=== PATIENT | female | born 1985 ===

== ENCOUNTER 2024-07-17 00:41 | Emergency (ER) | payer OTHER, SELFPAY ==
--- NOTE | ~2024-07-17 | CT_ITS ---
CLINICAL HISTORY: L flank pain hx stones CT abdomen and pelvis without contrast Comparison: None Findings: Lung bases clear. Heart size normal. Small hiatal hernia. 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 Otherwise normal noncontrast attenuation. No focal abnormality. Normal contour. Gallbladder, biliary tree, pancreas and spleen are unremarkable. Mild physiologic fullness left adrenal gland. Unremarkable right adrenal gland. Bilateral nephrolithiasis. 4 mm upper pole stone left kidney, 2 and 3 mm midpole and 2 mm lower pole stones right kidney. No obstructing stones on either side. No hydronephrosis. Incompletely rotated left kidney. Otherwise normal noncontrast appearance of the kidneys. No bowel obstruction. Moderate stool burden in the distal colon. Questionable wall thickening of bowel loops in the left lower quadrant. And infiltration of the mesentery within the low pelvis. Etiology uncertain. Further assessment limited. No diverticulitis. No abnormal appendix. Urinary bladder decompressed. Retroverted uterus. IUD projecting good position. Ovaries not well delineated. Bones intact. Soft tissues unremarkable. Impression: Bilateral nonobstructing nephrolithiasis. No obstructing stones or hydronephrosis. Nonspecific infiltration suggested in the low pelvic mesentery with questionable wall thickening of distal small bowel loops. No additional features for obstruction or enteritis. Further assessment limited and if indicated, follow-up CT with oral and IV contrast suggested. This document has been electronically signed by: Narciso Yang MD on 07/17/2024 05:07:40
[2024-07-17 00:47] VITALS: BP 117/60; PULSE 70; O2SAT 98
[2024-07-17 00:56] VITALS: BP 113/76; PULSE 58; RESP 16; TEMP 36.6; O2SAT 97; BMI 30.1
[2024-07-17 01:44] LABS: MANUAL DIFF FLAG NO
[2024-07-17 01:46] LABS: Basophils Absolute Auto 0.1 X10*3/uL (0.0-0.2); Basophils Percent Auto 0.7 % (0-2); Eosinophils Absolute Auto 0.2 X10*3/uL (0.0-0.4); Eosinophils Percent Auto 1.6 % (0-4); Hematocrit 32.7 % (37.0-47.0); Hemoglobin 11.2 g/dl (12.0-16.0); Imm Gran Abs Auto 0.03 X10*3/uL (0.00-0.03); Imm Gran Pct Auto 0.3 % (0.0-0.4); Lymphocytes Absolute Auto 2.2 X10*3/uL (1.2-4.9); Lymphocytes Percent Auto 21.9 % (20-40); Mean Corpuscular HGB Conc 34.3 g/dl (31.0-35.0); Mean Corpuscular Hemoglobin 31.7 pg (27.0-33.0); Mean Corpuscular Volume 92.6 fL (80.0-98.0); Mean Platelet Volume 9.2 fL (9.4-12.3); Monocytes Absolute Auto 0.6 X10*3/uL (0.1-1.2); Monocytes Percent Auto 5.5 % (2-11); Platelet Count 225 X10*3/uL (160-400); Red Blood Count 3.53 X10*6/uL (4.20-5.50); Red Cell Distribution Width 13.8 % (11.0-16.0); White Blood Count 10.1 X10*3/uL (4.8-10.8)
[2024-07-17 02:30] LABS: Alanine Aminotransferase 88 U/L (0-31); Alkaline Phosphatase 38 U/L (39-117); Anion Gap 11 (12-20); Aspartate Amino Transferase 101 U/L (5-31); Bilirubin Total 0.4 mg/dL (0.0-1.0); Blood Urea Nitrogen 14 mg/dL (9-16); Calcium 8.6 mg/dL (8.4-10.2); Carbon Dioxide 27 mmol/L (22-29); Chloride 107 mmol/L (96-108); Creatinine Clr Calc Pharmacy 65.3; Estimated Glomerular Filt Rate 53; Glucose Random 92 mg/dL (60-115); Lipase 40 U/L (8-78); Sodium 141 mmol/L (135-145); Total Protein 6.9 g/dL (6.5-8.0)
[2024-07-17 03:46] LABS: Appearance Urine Turbid; Color Urine Red; Glucose Urine UA Negative (Negative); Leukocyte Esterase Urine Moderate (2+) (Negative); Nitrite Urine Negative (Negative); PH 5.5 (5.0-9.0); Specific Gravity - Urine 1.025 (1.005-1.025); UMIC TRIGGER UACC YES; Urine Blood Large (3+) (Negative); Urine Ketones Negative (Negative); Urine Protein 100 (2+) mg/dL (Neg-Trace)
[2024-07-17 03:56] LABS: Bacteria Urine 4+ (None Seen); Hyaline Casts Urine 0-2 /LPF (0-2); RBC Urine >20 /HPF (0-2); Squamous Epithelial Cell Urine >20 /HPF (0-2); UACC Culture Trigger YES; WBC Urine >50 /HPF (0-5)
--- NOTE | 2024-07-17 04:09 | PC.NURSE ---
pt taken to ct-scan, awaiting for results
[2024-07-17] MEDS: Ibuprofen 600 MG TABLET PO (05:24)
--- NOTE | 2024-07-17 05:26 | PC.NURSE ---
medicated for pain, awaiting to be seen.
--- NOTE | 2024-07-17 05:37 | ED_ITS ---
HPI - General Adult General Chief complaint: Abdominal Pain Stated complaint: LEFT SIDED ABDOMINAL PAIN, BLOOD IN URINE Time Seen by Provider: 07/17/24 05:31 Source: patient Mode of arrival: ambulatory Limitations: no limitations History of Present Illness ED Provider: Dr. Juliet Marie HPI narrative: Patient comes to the emergency room complaining of left-sided flank pain. Patient states that she has been having urinary frequency, dysuria . Denies fever chills. Patient states that she has had kidney stones before and need feels similar. Related Data Previous Rx's ?Medication ?Instructions ?Recorded fluconazole 200 mg tablet 200 mg PO ONCE #1 tab 07/17/24 (Diflucan) ketorolac 10 mg tablet 10 mg PO Q8H #12 tabs 07/17/24 levofloxacin 500 mg tablet 500 mg PO DAILY #9 tabs 07/17/24 phenazopyridine 100 mg tablet 100 mg PO TID PRN pain #6 tabs 07/17/24 Allergies Allergy/AdvReac Type Severity Reaction Status Date / Time No Known Allergies Allergy Verified 07/17/24 00:57 Review of Systems 2 Review of Systems: Constitutional : No Weight loss, No Fever, No Chills, No Night Sweats, No Fatigue, No Malaise ENT/Mouth : No Hearing loss, No Ear Pain, No Nasal Congestion, No Sinus Pain, No Hoarseness, No sore throat, No Rhinorrhea, No Swallowing Difficulty Eyes: No Eye Pain, No Swelling, No Redness, No Foreign Body, No Discharge, No Vision Changes Cardiovascular : No Chest Pain, No SOB, No Dyspnea on Exertion, No Orthopnea, No Edema, No Palpitations Respiratory : No Cough, No Sputum, No Wheezing, No Smoke Exposure, No Dyspnea Gastrointestinal : No Nausea, No Vomiting, No Diarrhea, No Constipation, No abdominal Pain, No Hematochezia, No Melena Genitourinary : no irregular bleeding, complaining dysuria, complaining of urinary frequency and hematuria, No Urinary Incontinence, No Urgency, complaining of left-sided Flank Pain, No Urinary Flow Changes, No Hesitancy Musculoskeletal : No joint pain, No Myalgias, No Joint Swelling Skin : No Skin Lesions, No rash Neuro : No Weakness, No Numbness, No Paresthesias, No Loss of Consciousness, No Dizziness, No Headache Psych : No Anxiety/Panic, No Depression, No SI/HI/AH/VH, No Social Issues, Heme/Lymph: No Bruising, No Bleeding,No Lymphadenopathy Endocrine : No Polyuria, No Polydipsia, No Temperature Intolerance [facility] Past Medical History Medical History (Updated 07/17/24 @ 05:45 by Juliet Marie MD) Kidney stones Social History Social History Smoked in Last 30 Days: No Use of substances other than those prescribed or required for medical reasons: No Advance Directives: No Do you have a plan to hurt others: No Plan Physical Exam ED Vital Signs: Vital Signs - 24 hr 07/17/24 00:56 Temperature 97.9 F Pulse Rate 58 Respiratory Rate 16 Blood Pressure 113/76 Pulse Oximetry 97 Oxygen Delivery Method Room Air BMI result Body Mass Index 30.1 Const Other: Appearance: Alert. Oriented X3. No acute distress. Eyes: Pupils equal, round and reactive to light. ENT: Pharynx normal. Neck: Normal inspection. Neck supple. No lymph nodes noted. No crepitus CVS: Normal heart rate and rhythm. Pulses normal. Normal S1 and S2 Respiratory: No respiratory distress. Breath sounds normal. No Wheezing. No rales Abdomen: Soft , no significant tenderness to palpation on the left lower quadrant, no rebound or guarding, positive CVA tenderness on the left Skin: Skin warm and dry. Normal skin color. Normal skin turgor. Extremities: No lower extremity edema. No Lacerations. No Rash Neuro: Oriented X 3. No motor deficit. No sensory deficit. Moving all extremities. No slurred speech. CN 2 through 12 grossly intact Psych: calm, cooperative, normal affect Medications Administered Discontinued Medications Generic Name Dose Route Start Last Admin Trade Name Rajivq PRN Reason Stop Dose Admin Ibuprofen 600 mg 07/17/24 05:15 07/17/24 05:24 Ibuprofen 600 Mg Tablet PO 07/17/24 05:16 600 mg ONCE ONE Administration Medical Decision Making Medical Decision Making MDM Narrative: My interpretation of labs: No significant abnormality in patient's hematology and chemistry. Patient does have a UTI. Her LFTs within normal limits CT scan does not show any ureterolithiasis. Patient likely has a UTI/pyelonephritis. Patient has no fever, no episodes of hypotension, no tachycardia. At this time, sepsis is not suspected. Patient received levofloxacin ketorolac and Zofran. With the above-mentioned medication, patient states that she feels better and is ready to go home. I discussed with the patient that if she develops any worsening symptoms, fever or anything new she needs to return to the emergency room and plan to be admitted. Differential Diagnosis Differential Diagnoses: The differential diagnosis associated with the presentation includes (UTI, pyelonephritis, ureterolithiasis) Admission/Observation Consideration of admission/observation: Escalation of care including admission/observation considered (Given patient's presentation and history, observation was considered) Lab Data MDM Lab Attestation statement: I reviewed the patient's lab results. 07/17/24 01:40 07/17/24 01:40 Labs: Lab Results 07/17/24 07/17/24 Range/Units 01:40 03:27 WBC 10.1 (4.8-10.8) X10*3/uL RBC 3.53 L (4.20-5.50) X10*6/uL Hgb 11.2 L (12.0-16.0) g/dl Hct 32.7 L (37.0-47.0) % MCV 92.6 (80.0-98.0) fL MCH 31.7 (27.0-33.0) pg MCHC 34.3 (31.0-35.0) g/dl RDW 13.8 (11.0-16.0) % Plt Count 225 (160-400) X10*3/uL MPV 9.2 L (9.4-12.3) fL Immature Gran % (Auto) 0.3 (0.0-0.4) % Neut % (Auto) 70.0 (45-73) % Lymph % (Auto) 21.9 (20-40) % [place] % (Auto) 5.5 (2-11) % Eos % (Auto) 1.6 (0-4) % Baso % (Auto) 0.7 (0-2) % Lymph # (Auto) 2.2 (1.2-4.9) X10*3/uL [place] # (Auto) 0.6 (0.1-1.2) X10*3/uL Eos # (Auto) 0.2 (0.0-0.4) X10*3/uL Baso # (Auto) 0.1 (0.0-0.2) X10*3/uL Abs Immat Gran (auto) 0.03 (0.00-0.03) X10*3/uL Absolute Neuts (auto) 7.0 (2.0-8.3) x10*3/uL Absolute Nucleated RBC 0.000 (0.0-0.012) X10*3/uL Nucleated RBC % (auto) 0.0 (0.0-0.2) /100WBC Sodium 141 (135-145) mmol/L Potassium 4.0 (3.3-5.1) mmol/L Chloride 107 (96-108) mmol/L Carbon Dioxide 27 (22-29) mmol/L Anion Gap 11 L (12-20) BUN 14 (9-16) mg/dL Creatinine 1.16 (0.5-1.4) mg/dL Estim Creat Clear Calc 65.3 Estimated GFR 53 Random Glucose 92 (60-115) mg/dL Calcium 8.6 (8.4-10.2) mg/dL Total Bilirubin 0.4 (0.0-1.0) mg/dL AST 101 H (5-31) U/L ALT 88 H (0-31) U/L Alkaline Phosphatase 38 L (39-117) U/L Total Protein 6.9 (6.5-8.0) g/dL Albumin 4.0 (3.5-5.0) g/dL Lipase 40 (8-78) U/L Urine Color Red A Urine Appearance Turbid Urine pH 5.5 (5.0-9.0) Ur Specific [place] 1.025 (1.005-1.025) Urine Protein 100 (2+) H (Neg-Trace) mg/dL Urine Glucose (UA) Negative (Negative) mg/dL Urine Ketones Negative (Negative) mg/dL Urine Blood Large (3+) H (Negative) Urine Nitrite Negative (Negative) Ur Leukocyte Esterase Moderate (2+) H (Negative) Urine RBC >20 H (0-2) /HPF Urine WBC >50 H (0-5) /HPF Ur Squamous Epith Cells >20 (0-2) /HPF Urine Bacteria 4+ (None Seen) Hyaline Casts 0-2 (0-2) /LPF Independent Interpretation I performed an independent interpretation of an: CT Scan Radiology Impression Discussion of test interpretation with radiology: I have reviewed the radiologist's reading. Radiologist Impression: Lung bases clear. Heart size normal. Small hiatal hernia. 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 Otherwise normal noncontrast attenuation. No focal abnormality. Normal contour. Gallbladder, biliary tree, pancreas and spleen are unremarkable. Mild physiologic fullness left adrenal gland. Unremarkable right adrenal gland. Bilateral nephrolithiasis. 4 mm upper pole stone left kidney, 2 and 3 mm midpole and 2 mm lower pole stones right kidney. No obstructing stones on either side. No hydronephrosis. Incompletely rotated left kidney. Otherwise normal noncontrast appearance of the kidneys. No bowel obstruction. Moderate stool burden in the distal colon. Questionable wall thickening of bowel loops in the left lower quadrant. And infiltration of the mesentery within the low pelvis. Etiology uncertain. Further assessment limited. No diverticulitis. No abnormal appendix. Urinary bladder decompressed. Retroverted uterus. IUD projecting good position. Ovaries not well delineated. Bones intact. Soft tissues unremarkable. Impression: Bilateral nonobstructing nephrolithiasis. No obstructing stones or hydronephrosis. Nonspecific infiltration suggested in the low pelvic mesentery with questionable wall thickening of distal small bowel loops. No additional features for obstruction or enteritis. Further assessment limited and if indicated, follow-up CT with oral and IV contrast suggested. Critical Care Time Critical Care Time Critical Care Time: Yes Total Critical Care Time: 35 Attestation: I have personally provided critical care time. Time includes review of lab data, radiology results, discussion with consultants, and monitoring for potential decompensation. Intervention performed as documented. Discharge Plan Discharge Clinical Impression: Pyelonephritis Patient Disposition: Home, Self-Care Instructions: Kidney Infection (ED) Additional Instructions: Please follow-up with your primary care physician tomorrow. If you have any worsening or new symptoms, please return to the emergency room or call 911 Prescriptions: New levofloxacin 500 mg tablet 500 mg PO DAILY Qty: 9 0RF ketorolac 10 mg tablet 10 mg PO Q8H Qty: 12 0RF Rx Instructions: Do not use ibuprofen or other NSAIDs with this medication. phenazopyridine 100 mg tablet 100 mg PO TID PRN (Reason: pain) Qty: 6 0RF Rx Instructions: This medication will make your urine looked very red fluconazole [Diflucan] 200 mg tablet 200 mg PO ONCE Qty: 1 0RF Stand Alone Forms: Work/School Release Print Language: Guatemalan
[2024-07-17] MEDS: Ketorolac Tromethamine 30 MG/ML VIAL IVPUSH (05:51)
[2024-07-17] MEDS: levoFLOXacin 500 MG TABLET PO (05:51)
[2024-07-17] MEDS: ondansetron HCL 4 MG/2 ML VIAL IVPUSH (05:51)
--- NOTE | 2024-07-17 05:59 | PC.NURSE ---
pt medicated per may, reviewed discharge instruction with pt, pt verbalized understanding, no sign of distress upon discharge, pt had a steady agait.
[2024-07-17 06:00] VITALS: BP 108/66; PULSE 51; RESP 16; TEMP 36.7; O2SAT 98
[2024-07-17 06:01] VITALS: BP 108/66; PULSE 51; RESP 16; TEMP 36.7; O2SAT 98
== END 2024-07-17 06:01 | disposition home or self-care (01) ==
PROVIDERS: Emergency Provider Emergency Medicine
DX: N12 Tubulo-interstitial nephritis, not specified as acute or chronic (principal); R31.9 Hematuria, unspecified; R10.2 Pelvic and perineal pain; R35.0 Frequency of micturition; Z87.442 Personal history of urinary calculi; Z79.899 Other long term (current) drug therapy
CPT/HCPCS: 36415; 74176; 80053; 81001; 83690; 85025; 87086; 96374; 96375; 99284; J1885; J2405

== ENCOUNTER → 2024-07-17 03:16 | Outpatient (BNV) | payer OTHER, SELFPAY | PROVIDERS: Emergency Provider Emergency Medicine; Visit Provider Radiology Diagnostic Radiology | DX: N20.0 Calculus of kidney (principal) | CPT/HCPCS: 74176 ==

== ENCOUNTER 2024-07-26 11:37 | Emergency (ER) | payer OTHER, SELFPAY ==
[2024-07-26 11:49] VITALS: BP 110/52; PULSE 78; RESP 19; TEMP 36.6; O2SAT 98; BMI 30.1
--- NOTE | 2024-07-26 11:53 | ED.GENADULT ---
HPI - General Adult General Chief complaint: Abdominal Pain Stated complaint: abd pain, possible kidney stones? History of Present Illness HPI narrative: Patient left before completion of treatment by ED provider. Related Data Previous Rx's ?Medication ?Instructions ?Recorded fluconazole 200 mg tablet 200 mg PO ONCE #1 tab 07/17/24 (Diflucan) ketorolac 10 mg tablet 10 mg PO Q8H #12 tabs 07/17/24 levofloxacin 500 mg tablet 500 mg PO DAILY #9 tabs 07/17/24 phenazopyridine 100 mg tablet 100 mg PO TID PRN pain #6 tabs 07/17/24 Allergies Allergy/AdvReac Type Severity Reaction Status Date / Time No Known Allergies Allergy Verified 07/26/24 11:50 [facility] Past Medical History Medical History (Updated 07/27/24 @ 00:00 by Background Daemon) Kidney stones Social History Social History Advance Directives: No Advance Directives Information Provided: No Do you have a plan to hurt others: No Plan Physical Exam ED Vital Signs: Vital Signs - 24 hr 07/26/24 11:49 Temperature 98 F Pulse Rate 78 Respiratory Rate 19 Blood Pressure 110/52 L Pulse Oximetry 98 Oxygen Delivery Method Room Air BMI result Body Mass Index 30.1 Course Course Course Narrative: RME: 38-year-old female recently off with pyelonephritis presents to ED for upper lower abdominal pain life-threatening yesterday. Patient also history of kidney stones. Patient patient has generalized abdominal tenderness. Labs ordered Discharge Plan Discharge Clinical Impression: Diagnosis unknown Patient Disposition: Left W/O Completing Treatment Prescriptions: No Action levofloxacin 500 mg tablet 500 mg PO DAILY Qty: 9 0RF ketorolac 10 mg tablet 10 mg PO Q8H Qty: 12 0RF Rx Instructions: Do not use ibuprofen or other NSAIDs with this medication. phenazopyridine 100 mg tablet 100 mg PO TID PRN (Reason: pain) Qty: 6 0RF Rx Instructions: This medication will make your urine looked very red fluconazole [Diflucan] 200 mg tablet 200 mg PO ONCE Qty: 1 0RF Discharge Date/Time: 07/26/24 15:35
== END 2024-07-26 15:35 | disposition left against medical advice (07) ==
PROVIDERS: Emergency Provider Emergency Medicine
DX: R10.30 Lower abdominal pain, unspecified (principal); Z53.21 Procedure and treatment not carried out due to patient leaving prior to being seen by health care provider
CPT/HCPCS: 99281

== ENCOUNTER 2024-07-28 03:32 | Emergency (ER) | payer OTHER, SELFPAY ==
--- NOTE | ~2024-07-28 | US_ITS ---
CLINICAL HISTORY: RUQ pain US abdomen limited Comparison: None Findings: The visualized pancreas is normal. The aorta and inferior vena cava are normal caliber. The liver is normal in size and echotexture. There is no intrahepatic bile duct dilatation. The common duct is 5 mm in diameter. The gallbladder is normal. There is no sonographic Fink sign. The main portal vein is antegrade. The right kidney is 11.4 cm in length. Small stone in the lower pole of the right kidney as seen on the patient's prior CT. No ascites. IMPRESSION: 1. No evidence of acute cholecystitis. Normal-appearing liver. 2. Nonobstructing right renal stone as seen on the prior CT exam. This document has been electronically signed by: Chantell Hill MD on 07/28/2024 06:43:21
[2024-07-28 03:33] VITALS: BP 99/62; PULSE 62; RESP 18; TEMP 36.6; O2SAT 98; BMI 30.1
[2024-07-28 03:46] LABS: MANUAL DIFF FLAG NO
[2024-07-28 03:47] LABS: Basophils Percent Auto 0.5 % (0-2); Eosinophils Absolute Auto 0.1 X10*3/uL (0.0-0.4); Eosinophils Percent Auto 1.5 % (0-4); Hematocrit 33.5 % (37.0-47.0); Hemoglobin 11.3 g/dl (12.0-16.0); Imm Gran Abs Auto 0.02 X10*3/uL (0.00-0.03); Imm Gran Pct Auto 0.3 % (0.0-0.4); Lymphocytes Absolute Auto 1.7 X10*3/uL (1.2-4.9); Mean Corpuscular HGB Conc 33.7 g/dl (31.0-35.0); Mean Corpuscular Hemoglobin 31.6 pg (27.0-33.0); Mean Corpuscular Volume 93.6 fL (80.0-98.0); Mean Platelet Volume 9.2 fL (9.4-12.3); Monocytes Absolute Auto 0.4 X10*3/uL (0.1-1.2); Monocytes Percent Auto 6.2 % (2-11); Neutrophils Absolute Auto 4.2 x10*3/uL (2.0-8.3); Neutrophils Percent Auto 65.5 % (45-73); Platelet Count 248 X10*3/uL (160-400); Red Blood Count 3.58 X10*6/uL (4.20-5.50); Red Cell Distribution Width 13.6 % (11.0-16.0); White Blood Count 6.5 X10*3/uL (4.8-10.8)
--- OUTSIDE RECORDS SUMMARY | 2024-07-28 03:55 | XMS_ITS | Clinical Summary ---
Author Organization [facility] ity Address [address] [place] [address] Care Team Providers Care Copyman Name Role Phone Unavailable Primary Care Provider Unavailabl e Social History Tobacco Use Types Packs/Day Years Used Date Smoking Tobacco: Never Assessed Comments Unknown Sex and Gender Information Value Date Recorded Sex Assigned at Not on file Legal Sex Female 3:13 PM EST Gender Identity Not on file Sexual Orientation Not on file Plan of Treatment Health Maintenance Due Date Last Done Comments Hepatitis B Vaccines (1 of 3 - 19+ 3-dose series) 2005 06/18/2017 Cervical Cancer Screening: P ap Smear 08/10/2007 Depression Screening 02/28/2022 HIV Screening 02/28/2022 Hepatitis C Screening 02/28/2022 Social Influencers of Health Screening 02/28/2022 COVID-19 Vaccine ( - 2023-2 5 season) 2023 Influenza Vaccine (Season Ended) 2024 DTaP,Tdap,and Td Vaccines (2 - Td or Tdap) 10/19/2032 10/19/2022 HIB Vaccines Aged Out No longer eligi ble based on patient's age to complete this topic HPV Vaccines Aged Out No longer eligi ble based on patient's age to complete this topic Hepatitis A Vaccines Aged Out No long er eligible based on patient's age to complete this topic IPV Vaccines Aged Out No longer eligi ble based on patient's age to complete this topic MMR Vaccines Aged Out No longer eligi ble based on patient's age to complete this topic Meningococcal ACWY Vaccine Aged Out N o longer eligible based on patient's age to complete this topic Meningococcal B Vaccine Aged Out No l onger eligible based on patient's age to complete this topic Pneumococcal Vaccine: Pediat rics (0 to 5 Years) and At-Risk Patients (6 to 64 Years) Aged Out No longer eligi ble based on patient's age to complete this topic RSV Immunization Patients Un angela 20 months Aged Out No longer eligible b ased on patient's age to complete this topic Varicella Vaccines Aged Out No longer eligible based on patient's age to complete this topic
[2024-07-28] MEDS: ondansetron HCL 4 MG/2 ML VIAL IVPUSH (04:05)
[2024-07-28] MEDS: Ketorolac Tromethamine 15 MG/ML VIAL IVPUSH (04:05)
--- NOTE | 2024-07-28 04:05 | ED.ABDPAIN ---
HPI - Abdominal Pain General Chief Complaint: Abdominal Pain Stated Complaint: Stomach Pain Time Seen by Provider: 07/28/24 03:44 Source: patient and old records reviewed Mode of arrival: ambulatory Limitations: no limitations History of Present Illness ED Provider: TABATHA DIAZ narrative: 38 yo female with PMH of renal colic who was just diagnosed with UTI and has been on levofloxacin since last week - she reports since Saturday she has epigastric and RUQ pain when she eats. She does not take daily NSAIDs. She reports she had n/v/d on Saturday but it resolved. She still has pain though whenever she eats. It became severe before bed after [facility]. No fevers, no urinary symptoms. Has had no other abdominal surgery other than ureteral stents MD elicited complaint: abdominal pain Pertinent past history: kidney stones Onset (ago): day(s) (2) Pain Consistency: intermittent Location: epigastric and RUQ Severity: moderate Quality: stabbing Radiation: none Exacerbating factors: eating Relieving factors: nothing Associated symptoms: nausea and vomiting Related Data Previous Rx's ?Medication ?Instructions ?Recorded fluconazole 200 mg tablet 200 mg PO ONCE #1 tab 07/17/24 (Diflucan) ketorolac 10 mg tablet 10 mg PO Q8H #12 tabs 07/17/24 levofloxacin 500 mg tablet 500 mg PO DAILY #9 tabs 07/17/24 phenazopyridine 100 mg tablet 100 mg PO TID PRN pain #6 tabs 07/17/24 omeprazole 40 mg capsule,delayed 40 mg PO DAILY #14 caps 07/28/24 release ondansetron 4 mg disintegrating 4 mg PO Q8H PRN nausea and 07/28/24 tablet vomiting #20 tabs sucralfate 100 mg/mL oral 10 ml PO BID 7 days #140 mL 07/28/24 suspension (Carafate) Allergies Allergy/AdvReac Type Severity Reaction Status Date / Time No Known Allergies Allergy Verified 07/28/24 03:35 Review of Systems Review of Systems Constitutional : No Weight loss, No Fever, No Chills ENT/Mouth : No sore throat, No Rhinorrhea Eyes: No Swelling, No Redness Cardiovascular : No Chest Pain, No SOB, NoEdema Respiratory : No Cough, No Sputum, No Wheezing Gastrointestinal : Positive Nausea, Positive Vomiting, positive Diarrhea, positive abdominal Pain, No Hematochezia, No Melena Genitourinary : No Dysuria, No Urinary Frequency, No Hematuria, No Urgency Musculoskeletal : No joint pain, No Myalgias, No Joint Swelling Skin : No Skin Lesions, No rash Neuro : No Weakness, No Numbness, No Dizziness, No Headache All other systems reviewed and are negative. [facility] Past Medical History Attestation statement: The following information was validated with the patient. Source: old records reviewed Medical History Kidney stones Social History Social History (Updated 07/28/24 @ 04:11 by Savana Baptiste DO) Patient Tobacco Use Status: Never used Tobacco Smoked in Last 30 Days: No Use of substances other than those prescribed or required for medical reasons: Yes Substance Use Type: Marijuana Substance Use Frequency: Daily Advance Directives: No Advance Directives Information Provided: Yes Do you have a plan to hurt others: No Plan Patient : No Physical Exam ED Vital Signs: Vital Signs - 24 hr 07/28/24 03:33 07/28/24 05:32 Temperature 97.9 F 98.0 F Pulse Rate 62 59 Respiratory Rate 18 16 Blood Pressure 99/62 103/61 Pulse Oximetry 98 99 Oxygen Delivery Method Room Air Room Air BMI result Body Mass Index 30.1 Appearance: Alert. Oriented X3. No acute distress. Eyes: Pupils equal, round and reactive to light. ENT: Pharynx normal. Neck: Normal inspection. Neck supple. CVS: Normal heart rate and rhythm. Pulses normal. Respiratory: No respiratory distress. Breath sounds normal. Abdomen: Soft and moderate epigastric ttp + fink's sign Skin: Skin warm and dry. Normal skin color. Normal skin turgor. Extremities: No lower extremity edema. No calf ttp Neuro: Oriented X 3. No motor deficit. No sensory deficit. CN2-12 intact Medical Decision Making Medical Decision Making MDM Narrative: 38 yo female with PMH of renal colic currently on levofloxacin for UTI now here with c/o RUQ pain and epigastric pain after eating - she denies NSAID use at this time suspect gastritis, PUD, biliary colic, pancreatitis. Will obtain labs, RUQ US, start on pain relief. Differential Diagnosis Differential Diagnoses: The differential diagnosis associated with the presentation includes gastritis, PUD, biliary colic, pancreatitis Admission/Observation Consideration of admission/observation: Escalation of care including admission/observation considered labs reassuring LFTs lower than baseline US normal will treat as PUD or gastritis will start on PPI and carafate as well as nausea medications Lab Data MDM Lab Attestation statement: I reviewed the patient's lab results. 07/28/24 03:42 07/28/24 03:42 Labs: Lab Results 07/28/24 Range/Units 03:42 WBC 6.5 (4.8-10.8) X10*3/uL RBC 3.58 L (4.20-5.50) X10*6/uL Hgb 11.3 L (12.0-16.0) g/dl Hct 33.5 L (37.0-47.0) % MCV 93.6 (80.0-98.0) fL MCH 31.6 (27.0-33.0) pg MCHC 33.7 (31.0-35.0) g/dl RDW 13.6 (11.0-16.0) % Plt Count 248 (160-400) X10*3/uL MPV 9.2 L (9.4-12.3) fL Immature Gran % (Auto) 0.3 (0.0-0.4) % Neut % (Auto) 65.5 (45-73) % Lymph % (Auto) 26.0 (20-40) % [place] % (Auto) 6.2 (2-11) % Eos % (Auto) 1.5 (0-4) % Baso % (Auto) 0.5 (0-2) % Lymph # (Auto) 1.7 (1.2-4.9) X10*3/uL [place] # (Auto) 0.4 (0.1-1.2) X10*3/uL Eos # (Auto) 0.1 (0.0-0.4) X10*3/uL Baso # (Auto) 0.0 (0.0-0.2) X10*3/uL Abs Immat Gran (auto) 0.02 (0.00-0.03) X10*3/uL Absolute Neuts (auto) 4.2 (2.0-8.3) x10*3/uL Absolute Nucleated RBC 0.000 (0.0-0.012) X10*3/uL Nucleated RBC % (auto) 0.0 (0.0-0.2) /100WBC Sodium 139 (135-145) mmol/L Potassium 4.0 (3.3-5.1) mmol/L Chloride 106 (96-108) mmol/L Carbon Dioxide 24 (22-29) mmol/L Anion Gap 13 (12-20) BUN 13 (9-16) mg/dL Creatinine 1.22 (0.5-1.4) mg/dL Estim Creat Clear Calc 62.1 Estimated GFR 50 Random Glucose 92 (60-115) mg/dL Calcium 8.6 (8.4-10.2) mg/dL Total Bilirubin 0.7 (0.0-1.0) mg/dL Direct Bilirubin 0.2 (0.0-0.5) mg/dL AST 43 H (5-31) U/L ALT 32 H (0-31) U/L Alkaline Phosphatase 45 (39-117) U/L Total Protein 7.3 (6.5-8.0) g/dL Albumin 4.3 (3.5-5.0) g/dL Lipase 29 (8-78) U/L Independent Interpretation I performed an independent interpretation of an: Ultrasound (no acute findings) Radiology Impression Discussion of test interpretation with radiology: I have reviewed the radiologist's reading. External Record Review External record reviewed: Outpatient record Prescription Management I considered prescription management with: Other Medications Administered Discontinued Medications Generic Name Dose Route Start Last Admin Trade Name Freq PRN Reason Stop Dose Admin Lactated Ringer's 1,000 mls @ 999 mls/hr 07/28/24 04:01 07/28/24 04:06 Lr IV 07/28/24 05:01 999 mls/hr .Q1H1M ONE Administration Ketorolac Tromethamine 15 mg 07/28/24 03:52 07/28/24 04:05 Ketorolac Tromethamine 15 Mg/Ml Vial IVPUSH 07/28/24 03:53 15 mg ONCE ONE Administration Ondansetron HCl 4 mg 07/28/24 03:52 07/28/24 04:05 Ondansetron Hcl 4 Mg/2 Ml Vial IVPUSH 07/28/24 03:53 4 mg ONCE ONE Administration Discharge Plan Discharge Clinical Impression: Abdominal pain Qualifiers: Abdominal location: epigastric Qualified Code(s): R10.13 - Epigastric pain Gastritis Qualifiers: Gastritis type: unspecified gastritis Chronicity: acute Gastritis bleeding: without bleeding Qualified Code(s): K29.00 - Acute gastritis without bleeding Patient Disposition: Home, Self-Care Instructions: Gastritis (ED), Diet for Stomach Ulcers and Gastritis (ED), Acute Abdominal Pain (ED) Additional Instructions: eat a bland diet and avoid any spicy, greasy, fatty foods bananas, rice, applesauce, toash if you have pain take tylenol as needed for pain start the new medications today return for any worsening symptoms or concerns. Comparison: None Findings: The visualized pancreas is normal. The aorta and inferior vena cava are normal caliber. The liver is normal in size and echotexture. There is no intrahepatic bile duct dilatation. The common duct is 5 mm in diameter. The gallbladder is normal. There is no sonographic Fink sign. The main portal vein is antegrade. The right kidney is 11.4 cm in length. Small stone in the lower pole of the right kidney as seen on the patient's prior CT. No ascites. IMPRESSION: 1. No evidence of acute cholecystitis. Normal-appearing liver. 2. Nonobstructing right renal stone as seen on the prior CT exam. Prescriptions: New sucralfate [Carafate] 100 mg/mL suspension 10 ml PO BID 7 Days Qty: 140 0RF ondansetron 4 mg tablet,disintegrating 4 mg PO Q8H PRN (Reason: nausea and vomiting) Qty: 20 0RF omeprazole 40 mg capsule,delayed release(DR/EC) 40 mg PO DAILY Qty: 14 0RF No Action levofloxacin 500 mg tablet 500 mg PO DAILY Qty: 9 0RF ketorolac 10 mg tablet 10 mg PO Q8H Qty: 12 0RF Rx Instructions: Do not use ibuprofen or other NSAIDs with this medication. phenazopyridine 100 mg tablet 100 mg PO TID PRN (Reason: pain) Qty: 6 0RF Rx Instructions: This medication will make your urine looked very red fluconazole [Diflucan] 200 mg tablet 200 mg PO ONCE Qty: 1 0RF Stand Alone Forms: Work/School Release Print Language: Thai
[2024-07-28] MEDS: Lactated Ringers 1,000 ML 999 ML IV (04:06)
[2024-07-28 04:16] LABS: Alanine Aminotransferase 32 U/L (0-31); Albumin Level 4.3 g/dL (3.5-5.0); Alkaline Phosphatase 45 U/L (39-117); Anion Gap 13 (12-20); Aspartate Amino Transferase 43 U/L (5-31); Bilirubin Direct 0.2 mg/dL (0.0-0.5); Blood Urea Nitrogen 13 mg/dL (9-16); Calcium 8.6 mg/dL (8.4-10.2); Carbon Dioxide 24 mmol/L (22-29); Chloride 106 mmol/L (96-108); Creatinine Clr Calc Pharmacy 62.1; Estimated Glomerular Filt Rate 50; Glucose Random 92 mg/dL (60-115); Lipase 29 U/L (8-78); Sodium 139 mmol/L (135-145); Total Protein 7.3 g/dL (6.5-8.0)
[2024-07-28 04:29] LABS: Bilirubin Total 0.7 mg/dL (0.0-1.0)
[2024-07-28 05:32] VITALS: BP 103/61; PULSE 59; RESP 16; TEMP 36.7; O2SAT 99
--- NOTE | 2024-07-28 07:38 | PC.NURSE ---
Patient became increasing aggitated when attempting to discharge. Patient felt that care wasnt be provided. Informed patient that all her lab results and assessments ruled out any ailments at this time and to follow up with her PCP. Patient refused discharge vitals, refused discharge paperwork.
[2024-07-28 07:40] VITALS: BP 0/0; PULSE 0; RESP 0; TEMP -17.7; TEMP 0; O2SAT 0
== END 2024-07-28 07:41 | disposition home or self-care (01) ==
PROVIDERS: Emergency Provider Emergency Medicine
DX: K29.00 Acute gastritis without bleeding (principal); R10.13 Epigastric pain; R10.11 Right upper quadrant pain
CPT/HCPCS: 36415; 76705; 80053; 82248; 83690; 85025; 96361; 96374; 96375; 99284; J1885; J2405; J7120

== ENCOUNTER → 2024-07-28 03:52 | Outpatient (BNV) | payer OTHER, SELFPAY | PROVIDERS: Emergency Provider Emergency Medicine; Visit Provider Radiology Diagnostic Radiology | DX: R10.11 Right upper quadrant pain (principal); N20.0 Calculus of kidney | CPT/HCPCS: 76705 ==